=== PATIENT | female | born 1955 | race Hispanic/Latino ===

== ENCOUNTER 2023-10-03 03:28 | Inpatient (IN) | payer MEDICARE ==
[~2023-10-03] VITALS: Ht 157.5 cm; Wt 70.3 kg
[2023-10-03] VITALS (10 sets, daily range): BP systolic 103–131; BP diastolic 53–60; PULSE 67–97; RESP 16–22; TEMP 97.9–101; O2SAT 96–100
[2023-10-03] MEDS: SODIUM CHLORIDE 0.9% 1000ML 1,000 ML IV STA ×2 (03:56)
[2023-10-03] MEDS: ACETAMINOPHEN 325 MG TAB PO STA (03:57)
[2023-10-03] MEDS ORDERED: PIPERACILLIN/TAZOBACTAM 3.375 GM VIAL ONE (03:57)
[2023-10-03 04:11] LABS: BASOPHILS % 0.3 % (0.0-1.0); HEMATOCRIT 38.3 % (34.2-44.1); HEMOGLOBIN 12.8 g/dL (12.0-16.0); LYMPHOCYTES # (AUTO) 1.2 (1.0-3.2); LYMPHOCYTES % 8.9 % (18.0-39.1); MEAN CORPUSCULAR HEMOGLOBIN 30.8 pg (28-32); MEAN CORPUSCULAR HGB CONC 33.4 g/dL (31-35); MEAN CORPUSCULAR VOLUME 92.1 fL (81-99); MONOCYTES # (AUTO) 0.7 (0.2-0.8); MONOCYTES % 5.6 % (4.4-11.3); NEUTROPHILS # (AUTO) 11.1 (2.1-6.9); NEUTROPHILS % 84.7 % (38.7-80.0); PLATELET COUNT 190 x10e3/uL (140-360); RED BLOOD COUNT 4.16 x10e6/uL (3.6-5.1); RED CELL DISTRIBUTION WIDTH 13.2 % (11.7-14.4); WHITE BLOOD COUNT 13.09 x10e3/uL (4.8-10.8)
[2023-10-03] MEDS: SODIUM CHLORIDE FLUSH 10 ML SYR IV ONE (04:22)
[2023-10-03 04:26] LABS: ALBUMIN 3.9 g/dL (3.5-5.0); ANION GAP 16.6 mmol/L (8-16); BILIRUBIN,TOTAL 0.7 mg/dL (0.2-1.2); CALCIUM 9.1 mg/dL (8.4-10.2); CREATININE, SERUM 1.19 mg/dL (0.57-1.11); POTASSIUM 3.6 mmol/L (3.5-5.1)
[2023-10-03] MEDS: SODIUM CHLORIDE FLUSH 10 ML SYR IV PRN (04:26)
[2023-10-03 04:32] LABS: TROPONIN I 0.005 ng/mL (0-0.300)
[2023-10-03] MEDS ORDERED: IOPAMIDOL 370 MG/ML 100 ML INFUS..BTL INJ ONE (04:47)
[2023-10-03] MEDS ORDERED: Morphine 4mg INJECTION 4 MG/ML INJ IV PRN (05:15)
[2023-10-03 05:22] LABS: BILIRUBIN,URINE NEGATIVE (NEGATIVE); CLARITY,URINE CLOUDY (CLEAR); COLOR,URINE YELLOW (YELLOW); GLUCOSE, URINE NEGATIVE (NEGATIVE); KETONES,URINE NEGATIVE (NEGATIVE); LEUKOCYTE ESTERASE ,URINE 1+ (NEGATIVE); NITRITE,URINE POSITIVE (NEGATIVE); PH,URINE 7 (5 - 7); PROTEIN,URINE DIPSTICK NEGATIVE (NEGATIVE); URINE UROBILINOGEN 0.2 mg/dL (0.2 - 1)
[2023-10-03] MEDS: IBUPROFEN 600 MG TAB PO STA (05:39)
[2023-10-03 05:43] LABS: BACTERIA,URINE MODERATE /HPF; EPITHELIAL CELLS,URINE MODERATE /LPF; WBC,URINE (MAN) >50 /HPF (0-5)
[2023-10-03] MEDS: SODIUM CHLORIDE 0.9% 1000ML 1,000 ML IV SCH (07:26)
[2023-10-03] MEDS ORDERED: LOSARTAN POTAS100 MG PO (09:33)
[2023-10-03] MEDS ORDERED: BACTRIM 400-801 EACH PO (09:33)
[2023-10-03] MEDS ORDERED: METOPROLOL TARTRATE INJ 1 MG/ML VIAL IV PRN (10:00)
[2023-10-03] MEDS ORDERED: MELATONIN 3 MG TAB PO PRN (10:00)
[2023-10-03] MEDS ORDERED: DOCUSATE SODIUM 100 MG CAP PO PRN (10:00)
[2023-10-03] MEDS ORDERED: SIMETHICONE 80 MG CHEW PO PRN (10:00)
[2023-10-03] MEDS ORDERED: ALBUTEROL/IPRATROPIUM 3 ML NEB NEB PRN (10:00)
[2023-10-03 10:44] LABS: CHOL/HDL RATIO 3.5 (3.0-3.6)
[2023-10-03] MEDS: ACETAMINOPHEN 325 MG TAB PO PRN (14:50)
[2023-10-03 17:34] LABS: TROPONIN I 0.001 ng/mL (0-0.300)
[2023-10-03] MEDS: FAMOTIDINE 20 MG TAB PO SCH (17:58)
[2023-10-03] MEDS: ENOXAPARIN SOD INJ 40 MG/0.4 ML SYR SC SCH (17:58)
[2023-10-03] MEDS: ONDANSETRON HCL INJ 2MG/ML 2ML 2 MG/ML VIAL IV PRN (22:22)
[2023-10-04] VITALS (10 sets, daily range): BP systolic 131–158; BP diastolic 62–73; PULSE 65–87; RESP 16–19; TEMP 98.6–101.3; O2SAT 96–100
[2023-10-04 06:16] LABS: ANION GAP 12.7 mmol/L (8-16); BILIRUBIN,TOTAL 0.5 mg/dL (0.2-1.2); CALCIUM 8.3 mg/dL (8.4-10.2); CREATININE, SERUM 0.79 mg/dL (0.57-1.11); POTASSIUM 3.7 mmol/L (3.5-5.1); TOTAL PROTEIN 6.1 g/dL (6.5-8.1)
[2023-10-04 06:52] LABS: BASOPHILS % 0.5 % (0.0-1.0); EOSINOPHILS # (AUTO) 0.1 (0.0-0.4); EOSINOPHILS % 0.7 % (0.0-6.0); HEMATOCRIT 30.7 % (34.2-44.1); HEMOGLOBIN 9.8 g/dL (12.0-16.0); LYMPHOCYTES # (AUTO) 1.4 (1.0-3.2); MEAN CORPUSCULAR HEMOGLOBIN 30.3 pg (28-32); MEAN CORPUSCULAR HGB CONC 31.9 g/dL (31-35); MONOCYTES # (AUTO) 0.7 (0.2-0.8); MONOCYTES % 8.5 % (4.4-11.3); NEUTROPHILS # (AUTO) 6.2 (2.1-6.9); NEUTROPHILS % 72.8 % (38.7-80.0); PLATELET COUNT 136 x10e3/uL (140-360); RED BLOOD COUNT 3.23 x10e6/uL (3.6-5.1); RED CELL DISTRIBUTION WIDTH 13.4 % (11.7-14.4); WHITE BLOOD COUNT 8.48 x10e3/uL (4.8-10.8)
[2023-10-04 07:01] LABS: TROPONIN I 0.011 ng/mL (0-0.300)
[2023-10-04] MEDS: SODIUM BICARBONATE 650 MG TAB PO SCH (12:07)
[2023-10-05] VITALS (11 sets, daily range): BP systolic 102–172; BP diastolic 59–75; PULSE 55–78; RESP 16–20; TEMP 97.3–99.1; O2SAT 97–99
[2023-10-05 06:31] LABS: ANION GAP 12.5 mmol/L (8-16); CALCIUM 8.4 mg/dL (8.4-10.2); CREATININE, SERUM 0.71 mg/dL (0.57-1.11); POTASSIUM 3.5 mmol/L (3.5-5.1)
[2023-10-05 06:53] LABS: BASOPHILS % 0.6 % (0.0-1.0); EOSINOPHILS # (AUTO) 0.1 (0.0-0.4); EOSINOPHILS % 1.5 % (0.0-6.0); HEMATOCRIT 30.2 % (34.2-44.1); HEMOGLOBIN 9.8 g/dL (12.0-16.0); LYMPHOCYTES # (AUTO) 1.4 (1.0-3.2); LYMPHOCYTES % 20.7 % (18.0-39.1); MEAN CORPUSCULAR HEMOGLOBIN 30.4 pg (28-32); MEAN CORPUSCULAR HGB CONC 32.5 g/dL (31-35); MEAN CORPUSCULAR VOLUME 93.8 fL (81-99); MONOCYTES # (AUTO) 0.6 (0.2-0.8); MONOCYTES % 8.2 % (4.4-11.3); NEUTROPHILS # (AUTO) 4.6 (2.1-6.9); NEUTROPHILS % 68.3 % (38.7-80.0); PLATELET COUNT 140 x10e3/uL (140-360); RED BLOOD COUNT 3.22 x10e6/uL (3.6-5.1); RED CELL DISTRIBUTION WIDTH 13.2 % (11.7-14.4); WHITE BLOOD COUNT 6.72 x10e3/uL (4.8-10.8)
[2023-10-05] MEDS ORDERED: LEVOTHYROXINE75 MCG PO (15:52)
[2023-10-05] MEDS: LOSARTAN POTASSIUM 100 MG TAB PO SCH (16:16)
[2023-10-05] MEDS: METOPROLOL TARTRATE 25 MG TAB PO SCH (18:29)
[2023-10-06] VITALS (10 sets, daily range): BP systolic 127–169; BP diastolic 62–78; PULSE 51–82; RESP 17–20; TEMP 97.1–98.5; O2SAT 97–99
[2023-10-06] MEDS: LEVOTHYROXINE SODIUM 75 MCG TAB PO SCH (05:20)
[2023-10-06] MEDS: METOPROLOL TARTRATE 25 MG TAB PO SCH (08:43)
[2023-10-07] VITALS: BP 162/61; PULSE 51; RESP 17; TEMP 98.5; O2SAT 98
[2023-10-07 04:00] VITALS: BP 160/69; PULSE 64; RESP 18; TEMP 98.2; O2SAT 97
[2023-10-07 06:06] VITALS: PULSE 87; RESP 15; O2SAT 98
[2023-10-07 07:45] LABS: BASOPHILS % 0.7 % (0.0-1.0); EOSINOPHILS # (AUTO) 0.1 (0.0-0.4); EOSINOPHILS % 1.5 % (0.0-6.0); HEMATOCRIT 30.1 % (34.2-44.1); HEMOGLOBIN 9.5 g/dL (12.0-16.0); LYMPHOCYTES # (AUTO) 1.5 (1.0-3.2); LYMPHOCYTES % 25.2 % (18.0-39.1); MEAN CORPUSCULAR HEMOGLOBIN 29.9 pg (28-32); MEAN CORPUSCULAR HGB CONC 31.6 g/dL (31-35); MEAN CORPUSCULAR VOLUME 94.7 fL (81-99); MONOCYTES # (AUTO) 0.5 (0.2-0.8); MONOCYTES % 8.4 % (4.4-11.3); NEUTROPHILS # (AUTO) 3.8 (2.1-6.9); NEUTROPHILS % 62.9 % (38.7-80.0); PLATELET COUNT 180 x10e3/uL (140-360); RED BLOOD COUNT 3.18 x10e6/uL (3.6-5.1)
[2023-10-07 08:08] VITALS: BP 161/63; PULSE 57; RESP 16; TEMP 98.5; O2SAT 99
[2023-10-07 08:09] LABS: ANION GAP 12.6 mmol/L (8-16); CALCIUM 8.4 mg/dL (8.4-10.2); CREATININE, SERUM 0.66 mg/dL (0.57-1.11); POTASSIUM 3.6 mmol/L (3.5-5.1)
[2023-10-07 08:45] VITALS: BP 161/63; PULSE 62; RESP 16; TEMP 98.5; O2SAT 99
[2023-10-07 10:42] LABS: EOSINOPHILS % (MANUAL) 3 % (0-7); HYPOCHROMASIA SLIGHT; LYMPHOCYTES % (MANUAL) 26 % (19-48); MONOCYTES % (MANUAL) 9 % (3.4-9.0); NEUTROPHILS % (MANUAL) 62 % (40-74); PLATELET ESTIMATE ADEQUATE; PLATELET MORPHOLOGY COMMENT NORMAL; RBC MORPHOLOGY COMMENT NORMAL
[2023-10-07 11:29] VITALS: BP 151/66; PULSE 50; RESP 20; TEMP 98.2; O2SAT 99
[2023-10-07] MEDS ORDERED: LOPRESSOR25 MG PO (11:32)
[2023-10-07] MEDS ORDERED: CEPHALEXIN500 MG PO (11:32)
== END 2023-10-07 13:12 | disposition home or self-care (01) | DRG 872 ==
LOC: ER 03:33 → ERHOLD 05:13 → MED/SURG2 06:20
PROVIDERS: ADMIT Internal Medicine; ATTEND Internal Medicine
DX: A41.51 Sepsis due to Escherichia coli [E. coli] (principal); N17.9 Acute kidney failure, unspecified; N12 Tubulo-interstitial nephritis, not specified as acute or chronic; K76.0 Fatty (change of) liver, not elsewhere classified; R73.9 Hyperglycemia, unspecified; Z13.1 Encounter for screening for diabetes mellitus; R00.0 Tachycardia, unspecified; E03.9 Hypothyroidism, unspecified; E78.5 Hyperlipidemia, unspecified; Z11.52 Encounter for screening for COVID-19; Z96.643 Presence of artificial hip joint, bilateral; Z79.899 Other long term (current) drug therapy
CPT/HCPCS: 36415; 74177; 80048; 80053; 80061; 81001; 82550; 83036; 83605; 83690; 84484; 85025; 87040; 87071; 87086; 87186; 87205; 87400; 87420; 93005; 94799; 99252; 99284; J0690; J1650; J2405; J2543; J7030; J7050; Q9967; U0002

== ENCOUNTER 2024-06-16 19:26 | Emergency (ER) | payer MEDICARE ==
[~2024-06-16] VITALS: Ht 157.5 cm; Wt 78.5 kg
[~2024-06-16 19:26] MED LIST: BACTRIM 400-801 EACH PO; CEPHALEXIN500 MG PO; LEVOTHYROXINE75 MCG PO; LOPRESSOR25 MG PO; LOSARTAN POTAS100 MG PO
[2024-06-16 19:32] VITALS: PULSE 71; RESP 18; TEMP 98.5
[2024-06-16] MEDS ORDERED: TYLENOL325 MG PO (19:53)
[2024-06-16] MEDS ORDERED: ULTRAM 50MG50 MG PO (19:53)
[2024-06-16 20:08] VITALS: BP 185/86; PULSE 71; RESP 18; TEMP 98.5; O2SAT 99
== END 2024-06-16 20:08 | disposition home or self-care (01) ==
LOC: FSED 19:30
DX: R07.89 Other chest pain (principal); M79.651 Pain in right thigh; V43.52XA Car driver injured in collision with other type car in traffic accident, initial encounter; Y92.488 Other paved roadways as the place of occurrence of the external cause; E78.5 Hyperlipidemia, unspecified; E03.9 Hypothyroidism, unspecified; Z96.643 Presence of artificial hip joint, bilateral
CPT/HCPCS: 99282